=== PATIENT | male | born 1975 | race Hispanic/Latino ===

== ENCOUNTER 2025-03-02 17:40 | Observation (INO) | payer OTHER, SELFPAY ==
[2025-03-02] MEDS ORDERED: MORPHINE 4 MG/ML SYR ONE (18:16)
[2025-03-02] MEDS ORDERED: ONDANSETRON 4 MG/2 ML VIAL ONE (18:16)
[2025-03-02] MEDS ORDERED: ASPIRIN 81 MG CHEWABLE TABLET ONE (18:17)
[2025-03-02 18:33] LABS: Absolute Lymphocytes (CBC) 1.9 K/uL (0.7-4.9); Hematocrit 43.3 % (39.6-49.0); Hemoglobin 14.6 g/dL (13.6-17.9); MCH 26.6 pg (27.0-35.0); MCHC 33.7 g/dL (32.0-36.0); MCV 78.9 fL (80-100); MPV 6.9 fL (7.6-11.3); Nucleated RBC Absolute Count 0.0 (0-0); Nucleated Red Blood Cells % 0.0 % (0-0); RBC Red Blood Cell Count 5.49 M/uL (4.33-5.43); White Blood Count 10.10 thou/uL (4.3-10.9)
[2025-03-02 18:41] LABS: PT Prothrombin Time 11.7 SECONDS (10-13.0); Protime INR 1.04
[2025-03-02 18:58] LABS: ALT/SGPT 38 U/L (16-61); AST/SGOT 18 U/L (15-37); Albumin 4.0 g/dL (3.4-5.0); Albumin/Globulin Ratio 1.1 (1.1-1.8); Alkaline Phosphatase 122 U/L (45-117); Anion Gap 8.5 mEq/L (5.0-15.0); BUN Blood Urea Nitrogen 12 mg/dL (7-18); Globulin 3.7 g/dL (2.3-3.5); Glucose Level 99 mg/dL (74-106); Magnesium 2.2 mg/dL (1.6-2.4); NT PRO-BNP 18 pg/mL (<125); Potassium 3.5 mEq/L (3.5-5.1); Troponin High Sensitivity 5.2 pg/mL (<58.9)
[2025-03-02 18:59] LABS: Bilirubin Indirect, Calculated 0.1 mg/dL (0.2-0.8)
[2025-03-02] MEDS ORDERED: METOPROLOL TAR 25 MG TAB ONE (19:05)
--- NOTE | 2025-03-02 19:36 | RAD REPORT ---
EXAMINATION: ONE VIEW CHEST XR CLINICAL INDICATION: Male, 49 years old.,CHEST PAIN TECHNIQUE: Frontal chest projection is submitted. Examination is limited by patient positioning and t echnique. COMPARISON: No prior exam. FINDINGS: The lungs are well inflated and clear. No pneumothorax or sizable effusion. The heart is normal in s ize. Mediastinal contours are unremarkable. IMPRESSION: No acute intrathoracic abnormalities.
--- NOTE | 2025-03-02 19:41 | EDPHYS ---
Physician Documentation [facility] Name: Jorje Purvis Age: 49 yrs Sex: Male : 1975 Arrival Date: 03/02/2025 Time: 17:40 Bed 18 Private MD: ED Physician Zac Conley HPI: 03/02 18:22 This 49 yrs old Male presents to ER via Ambulatory with complaints of Chest sb4 Pain, Vomiting. 18:22 Patient reports intermittent dizziness for the past few days with exertion and today he sb4 started experiencing chest pain with associated vomiting. Has a history of hypertension high cholesterol, has not been on medications for a few months now due to a recent move. No reported cardiac history. Historical: - Allergies: 18:07 No Known Allergies; iw - Home Meds: 18:07 None [Active]; iw - PMHx: 18:04 Hypertensive disorder; Hypercholesterolemia; iw - PSHx: 18:07 None; iw - Immunization history:: Adult Immunizations. - Infectious Disease History:: Denies. - Social history:: Smoking status: Patient denies any tobacco usage or history of. ROS: 18:22 Constitutional: Negative for fever, chills, and weight loss, sb4 18:22 Cardiovascular: Positive for chest pain, 18:22 Abdomen/GI: Positive for nausea and vomiting, 18:22 Neuro: Positive for dizziness, 18:22 All other systems are negative, Exam: 18:22 Head/Face: Normocephalic, atraumatic. Eyes: Extra-ocular motions intact. Periorbital sb4 areas with no swelling, redness, or edema. ENT: Mucous membranes moist. Cardiovascular: Regular rate and rhythm with a normal S1 and S2. Respiratory: No increased work of breathing, no retractions or nasal flaring. Abdomen/GI: Soft, non-tender, no distension. Skin: Warm, dry with normal turgor. Normal color with no rashes, no lesions, and no evidence of cellulitis. 18:22 Constitutional: The patient appears in no acute distress, alert, awake, Vital Signs: 18:03 BP 160 / 110; Pulse 83; Resp 18; Temp 97.9; Pulse Ox 97% on R/A; Weight 80.74 kg; iw Height 5 ft. 5 in. ; Pain 7/10; 19:00 BP 165 / 106; Pulse 80; Resp 20; Pulse Ox 97% ; me1 20:23 BP 161 / 108; Pulse 74; Resp 17; Pulse Ox 97% on R/A; jb4 21:30 BP 153 / 111; Pulse 73; Resp 13; Pulse Ox 97% ; jb4 22:30 BP 161 / 112; Pulse 68; Resp 15; Pulse Ox 98% on R/A; jb4 18:03 Body Mass Index 29.62 (80.74 kg, 165.1 cm) iw 18:03 Pain Scale: Adult iw MDM: 17:45 Medical Screening Exam initiated sb4 18:23 Differential diagnosis: ACS, electrolyte abnormality, abnormal EKG, acute OK, unstable sb4 angina, hypertension. 19:04 Independent interpretation of the following test(s) in the Emergency Department CT sb4 Scan: My interpretation is Chest x-ray image -no cardiomegaly, pleural effusions, or pneumothorax. 19:48 Data reviewed: vital signs, nurses notes, lab test result(s), radiologic studies, and sb4 as a result, I will admit patient. Consideration of Admission/Observation Patient was admitted/placed on observation. Scoring Tools HEART Score: History: ECG: Age: Risk Factors: 1 or 2 risk factors (1), Troponin: Total Score = 5. Counseling: I had a detailed discussion with the patient and/or guardian regarding the historical points, exam findings, and any diagnostic results supporting the discharge/admit diagnosis, the presence of at least one elevated blood pressure reading (>120/80) during this emergency department visit, lab results, radiology results, the need for further work-up and treatment in the hospital. 03/02 18:07 Order name: Basic Metabolic Panel; Complete Time: 19:00 sb4 03/02 18:07 Order name: CBC with Diff; Complete Time: 18:35 sb4 03/02 18:07 Order name: LFT's; Complete Time: 19:00 sb4 03/02 18:07 Order name: Magnesium; Complete Time: 19:00 sb4 03/02 18:07 Order name: NT PRO-BNP; Complete Time: 19:00 sb4 03/02 18:07 Order name: PT-INR; Complete Time: 18:42 sb4 03/02 18:07 Order name: Troponin HS; Complete Time: 19:00 sb4 03/02 22:37 Order name: CBC with Automated Diff EDMS 03/02 22:37 Order name: CBC with Automated Diff EDMS 03/02 22:37 Order name: CBC with Automated Diff EDMS 03/02 22:37 Order name: Comprehensive Metabolic Panel EDMS 03/02 22:37 Order name: Comprehensive Metabolic Panel EDMS 03/02 22:37 Order name: Comprehensive Metabolic Panel EDMS 03/02 22:37 Order name: Magnesium EDMS 03/02 22:37 Order name: Magnesium EDMS 03/02 22:37 Order name: Magnesium EDMS 03/02 18:07 Order name: XRAY Chest (1 view); Complete Time: 19:37 sb4 03/02 22:26 Order name: CT HEAD,C-SPINT W/O EDMS 03/02 22:30 Order name: Head C Spine Mpr Wo Con EDMS 03/02 18:07 Order name: Cardiac monitoring; Complete Time: 18:43 sb4 03/02 18:07 Order name: EKG - Nurse/Tech; Complete Time: 18:13 sb4 03/02 18:07 Order name: IV Saline Lock; Complete Time: 18:22 sb4 03/02 18:07 Order name: Labs collected and sent; Complete Time: 18:22 sb4 03/02 18:07 Order name: O2 Per Protocol; Complete Time: 18:22 sb4 03/02 18:07 Order name: O2 Sat Monitoring; Complete Time: 18:22 sb4 EC:24 Rate is 81 beats/min. Rhythm is regular, Normal Sinus Rhythm. MS interval is normal at sb4 148 msec. QRS interval is normal at 84 msec. QT interval is normal at 370 msec. No Q waves. T waves are Normal. No ST changes noted. Clinical impression: Normal ECG. Interpreted by me. Reviewed by me. Administered Medications: 18:32 Drug: Aspirin PO Chewable Tablet 324 mg PO once; 81 mg tablets x 4 Route: PO; iw 18:49 Follow up: Response: No adverse reaction me1 18:32 Drug: morphine IVP or IV 4 mg IVP once over 4 mins Route: IVP; Infused Over: 4 mins; iw Site: right antecubital; 18:50 Follow up: Response: No adverse reaction; Pain is decreased me1 18:32 Drug: Ondansetron IVP 4 mg IVP once; over 2 minutes Route: IVP; Site: right antecubital;iw 18:49 Follow up: Response: No adverse reaction; Nausea is decreased me1 19:07 Drug: Metoprolol PO 25 mg PO once Route: PO; me1 20:22 Drug: Meclizine PO 50 mg PO once Route: PO; jb4 Disposition: 18:25 I was immediately available on-site in the Emergency Department for consultation in the ms3 care of the patient. Disposition Summary: 03/02/25 19:40 Hospitalization Ordered Notes: Hospitalization Status: Observation sb4 Provider: Adeel Matson sbEloina Location: Telemetry/MedSurg (observation) sb4 Condition: Fair sb4 Problem: new sb4 Symptoms: are unchanged sb4 Bed/Room Type: Standard sb4 Room Assignment: 421(03/02/25 22:39) km Diagnosis - Chest pain, unspecified sb4 - Dizziness and giddiness sb4 - Patient's noncompliance with medical treatment and regimen sb4 Forms: - Medication Reconciliation Form sb4 - SBAR form sb4 - Leadership Thank You Letter sb4 Signatures: Dispatcher [employer] Mckenzie Mitchell, AMARILIS OLMOS iw Jeremy Thompson RN RN jb4 Zac Conley DO DO ms3 Meagan Angel PA-C PAVern sb4 Tricia Flores RN RN me1 Telma Hart [facility] Corrections: (The following items were deleted from the chart) 18:07 18:07 BASIC METABOLIC PANEL+C.LAB.BRZ ordered. EDMS EDMS 18:07 18:07 CBC+H.LAB.BRZ ordered. EDMS EDMS 18:07 18:07 HEPATIC FUNCTION+C.LAB.BRZ ordered. EDMS EDMS 18:07 18:07 MAGNESIUM+C.LAB.BRZ ordered. EDMS EDMS 18:07 18:07 PROBNP+C.LAB.BRZ ordered. EDMS EDMS 18:07 18:07 PROTIME (+INR)+COAG.LAB.BRZ ordered. EDMS EDMS 18:07 18:07 Troponin High Sensitivity+C.LAB.BRZ ordered. EDMS EDMS 18:07 18:07 Chest Single View+RAD.RAD.BRZ ordered. EDMS EDMS 22:30 22:26 CT HEAD,C-SPINT W/O ordered. EDMS EDMS 22:39 19:40 sb4 kmf
--- NOTE | 2025-03-02 19:41 | ER ---
Nurse's Notes [facility] Name: Jorje Purvis Age: 49 yrs Sex: Male : 1975 Arrival Date: 03/02/2025 Time: 17:40 Bed 18 Private MD: Diagnosis: Chest pain, unspecified;Dizziness and giddiness;Patient's noncompliance with medical treatment and regimen Presentation: 03/02 18:03 Chief complaint: Patient states: dizzy X 1 week , he gets chest pains and then vomits, iw feels like he is going to pass out, happened again 4 hours ago. Coronavirus screen: At this time, the client does not indicate any symptoms associated with coronavirus-19. Ebola Screen: No symptoms or risks identified at this time. Initial Sepsis Screen: Does the patient meet any 2 criteria? No. Patient's initial sepsis screen is negative. Does the patient have a suspected source of infection? No. Patient's initial sepsis screen is negative. Risk Assessment: Do you want to hurt yourself or someone else? Patient reports no desire to harm self or others. Onset of symptoms was February 23, 2025. 18:03 Method Of Arrival: Ambulatory iw 18:03 Acuity: LESLI 3 iw Historical: - Allergies: 18:07 No Known Allergies; iw - Home Meds: 18:07 None [Active]; iw - PMHx: 18:04 Hypertensive disorder; Hypercholesterolemia; iw - PSHx: 18:07 None; iw - Immunization history:: Adult Immunizations. - Infectious Disease History:: Denies. - Social history:: Smoking status: Patient denies any tobacco usage or history of. Screenin:45 [facility] ED Fall Risk Assessment (Adult) History of falling in the last 3 months, me1 including since admission No falls in past 3 months (0 pts) Confusion or Disorientation No (0 pts) Intoxicated or Sedated No (0 pts) Impaired Gait No (0 pts) Mobility Assist Device Used No (0 pt) Altered Elimination No (0 pt) Score/Fall Risk Level 0 - 2 = Low Risk Maintained a safe environment, Provided non-skid footwear, Hourly rounding (assess needs \T\ fall precautionary measures) done. Abuse screen: Denies threats or abuse. Nutritional screening: No deficits noted. Tuberculosis screening: No symptoms or risk factors identified. Assessment: 18:45 General: Appears in no apparent distress. well groomed, well developed, well nourished, me1 Behavior is calm, cooperative, appropriate for age, Reports dizzy X 1 week , he gets chest pains and then vomits, feels like he is going to pass out, happened again 4 hours ago. Pain: Complains of pain in chest Pain does not radiate. Pain currently is 7 out of 10 on a pain scale. Quality of pain is described as pressure, Pain began suddenly, Is intermittent, episodic. Neuro: Level of Consciousness is awake, alert, obeys commands, Oriented to person, place, time, situation, Appropriate for age. Neuro: Reports dizziness, for a week. Cardiovascular: Reports chest pain, nausea, Patient's skin is warm and dry. Respiratory: Airway is patent Respiratory effort is even, unlabored, Respiratory pattern is regular, symmetrical. GI: Reports nausea, vomiting, that he gets chest pain and then vomits. : No signs and/or symptoms were reported regarding the genitourinary system. EENT: No signs and/or symptoms were reported regarding the EENT system. Derm: Skin is intact, is healthy with good turgor, Skin is normal. Musculoskeletal: Circulation, motion, and sensation intact. Range of motion: intact in all extremities. 20:22 Reassessment: Patient appears in no apparent distress at this time. Patient and/or jb4 family updated on plan of care and expected duration. Pain level reassessed. Patient is alert, oriented x 3, equal unlabored respirations, skin warm/dry/pink. report received from AMARILIS Clarke. 21:30 Reassessment: Patient appears in no apparent distress at this time. Patient and/or jb4 family updated on plan of care and expected duration. Pain level reassessed. Patient is alert, oriented x 3, equal unlabored respirations, skin warm/dry/pink. 22:38 Reassessment: Patient appears in no apparent distress at this time. Patient and/or jb4 family updated on plan of care and expected duration. Pain level reassessed. Patient is alert, oriented x 3, equal unlabored respirations, skin warm/dry/pink. Vital Signs: 18:03 BP 160 / 110; Pulse 83; Resp 18; Temp 97.9; Pulse Ox 97% on R/A; Weight 80.74 kg; iw Height 5 ft. 5 in. ; Pain 7/10; 19:00 BP 165 / 106; Pulse 80; Resp 20; Pulse Ox 97% ; me1 20:23 BP 161 / 108; Pulse 74; Resp 17; Pulse Ox 97% on R/A; jb4 21:30 BP 153 / 111; Pulse 73; Resp 13; Pulse Ox 97% ; jb4 22:30 BP 161 / 112; Pulse 68; Resp 15; Pulse Ox 98% on R/A; jb4 18:03 Body Mass Index 29.62 (80.74 kg, 165.1 cm) iw 18:03 Pain Scale: Adult iw ED Course: 17:43 Patient arrived in ED. mr 17:45 Meagan Angel PA-C is PHCP. sb4 17:45 Zac Conley DO is Attending Physician. sb4 18:04 Triage completed. iw 18:05 Arm band placed on. iw 18:22 Initial lab(s) drawn, by me, sent to lab. Inserted saline lock: 20 gauge in right iw antecubital area, using aseptic technique. Blood collected. Flushed with 10 mL NS. 18:44 XRAY Chest (1 view) In Process Unspecified. EDMS 18:45 Patient has correct armband on for positive identification. Bed in low position. Call me1 light in reach. Side rails up X2. Provided Education on: POC. Verbalized understanding.. Client placed on continuous cardiac and pulse oximetry monitoring. NIBP monitoring applied. laboratory monitor on. Pulse ox on. NIBP on. 18:45 No provider procedures requiring assistance completed. Patient maintains SpO2 me1 saturation greater than 95% on room air. 18:49 Tricia Flores, RN is Primary Nurse. me1 19:40 Adeel Matson, AMARILIS is Hospitalizing Provider. sb4 23:32 Patient admitted, IV remains in place. jb4 Administered Medications: 18:32 Drug: Aspirin PO Chewable Tablet 324 mg PO once; 81 mg tablets x 4 Route: PO; iw 18:49 Follow up: Response: No adverse reaction me1 18:32 Drug: morphine IVP or IV 4 mg IVP once over 4 mins Route: IVP; Infused Over: 4 mins; iw Site: right antecubital; 18:50 Follow up: Response: No adverse reaction; Pain is decreased me1 18:32 Drug: Ondansetron IVP 4 mg IVP once; over 2 minutes Route: IVP; Site: right antecubital;iw 18:49 Follow up: Response: No adverse reaction; Nausea is decreased me1 19:07 Drug: Metoprolol PO 25 mg PO once Route: PO; me1 20:22 Drug: Meclizine PO 50 mg PO once Route: PO; jb4 Medication: 18:45 VIS not applicable for this client. me1 Outcome: 19:40 Decision to Hospitalize by Provider. sb4 23:32 Admitted to Tele accompanied by nurse, via wheelchair, room 421, jb4 23:32 Condition: stable 23:32 Instructed on follow up and referral plans. the need for admit, Demonstrated understanding of instructions, follow-up care, medications, 23:33 Patient left the ED. jb4 Signatures: Dispatcher [employer] EDMS Sofia Anglin, Reg Reg mr Mckenzie Culver RN RN Jeremy Thompson RN RN jb4 Meagan Angel, PA-C PA-C [facility] Tricia Flores RN RN me1 Corrections: (The following items were deleted from the chart) 18:07 18:03 BP 160 / 110; Pulse 83bpm; Resp 18bpm; Pulse Ox 97% RA; Temp 97.9F; iw iw 18:51 18:03 Chief complaint: Patient states: dizzy X 1 week , he gets chest pains and then me1 vomits, feels like he is going to pass out, happened again 4 hours ago iw
[2025-03-02] MEDS ORDERED: MECLIZINE HCL 12.5 MG TAB ONE (20:19)
[2025-03-02] MEDS ORDERED: PANTOPRAZOLE 40 MG INJ IVP ONE (22:24)
[2025-03-02] MEDS ORDERED: SODIUM CHLORIDE 0.9% 10ML INJ IV PRN (22:24)
[2025-03-02] MEDS ORDERED: ONDANSETRON 4 MG/2 ML VIAL IV PRN (22:32)
[2025-03-02] MEDS ORDERED: ACETAMINOPHEN 325 MG TABLET PO PRN (22:32)
[2025-03-03 00:15] VITALS: BMI 29.6
[2025-03-03] MEDS: NA CHLORIDE 0.9% 1,000 ML IV SCH (00:40)
[2025-03-03] MEDS: PANTOPRAZOLE 40 MG INJ IVP ONE (00:41)
[2025-03-03 00:50] VITALS: O2SAT 98
--- NOTE | 2025-03-03 05:59 | P.HP ---
Certification for Inpatient Patient admitted to: Observation With expected LOS: <2 Midnights Patient will require the following post-hospital care: None Practitioner: I am a practitioner with admitting privileges, knowledge of patient current condition, hospital course, and medical plan of care. Services: Services provided to patient in accordance with Admission requirements found in Title 42 Section 412.3 of the Code of Federal Regulations <Adeel Matson - Last Filed: 03/03/25 06:08> Patient History Date of Service: 03/02/25 Reason for admission: Dizziness, nausea and vomiting, headache. History of Present Illness: Patient is a 49-year-old male with past medical history of prediabetic, essential hypertension, GERD, hypercholesteremia, brought to the ER today complaining of dizziness x 4 days, headache, nausea and vomiting. Apparently patient is supposed to be taking medications but he ran out of his medications currently is not taking any medication for his high blood pressure, cholesterol, or GERD. Patient significant other could not explain exactly what happened with his medications, states [place] recently moved [place] the [place] to [place]. Since patient is a predominantly Tajik-speaking only, most of his information was provided by the significant other female who was at bedside. She states patient has been having dizziness for the past 4 days, states they had gone to the [place], and states while driving back to [place], patient started vomiting nonbilious and nonbloody content, and also complained of headache. She states patient had multiple episode of vomiting, and complaint of epigastric pain, which appeared to be more flareup of GERD. She states she decided to bring the patient to ER for him to be checked out. During admission assessment, patient endorses headache, but denies of any nausea or vomiting at this time. Patient endorses upper epigastric pain, and appears to be more of patient GERD, patient has gone for a while without taking any of his medications. Patient blood pressure was also elevated in the ER. Patient denies of any chest pain or shortness of breath at this time. Course in ER. (1) chest x-ray. Impression: No acute intrathoracic abnormalities. (2) CT of the head without contrast. Impression still pending at this time. - Past Medical/Surgical History Has patient received pneumonia vaccine in the past: No -: HTN -: Hypercholesterolemia -: GERD Past Surgical History: Reviewed- Non-Contributory -: Patient states he does not with a past surgical history. - Family History Mother -: Cancer (Liver cancer.) - Social History Smoking Status: Former smoker Alcohol use: Yes CD- Drugs: No Caffeine use: No Place of Residence: Home <Adeel Matson - Last Filed: 03/03/25 06:08> Date of Service: 03/02/25 <Yuniel Mahmood - Last Filed: 03/08/25 12:39> Allergies No Known Allergies Allergy (Unverified 03/03/25 00:10) Home Medications: Aspirin [Aspirin EC 81 MG] 81 mg PO DAILY #30 tab 03/03/25 Atorvastatin Calcium [Lipitor] 20 mg PO BEDTIME #30 tab 03/03/25 Review of Systems 10-point ROS is otherwise unremarkable General: Other (Dizziness.) Gastrointestinal: Nausea, Vomiting <Adeel Matson - Last Filed: 03/03/25 06:08> Physical Examination - Vital Signs Temperature: 98.1 F Blood Pressure: 146/86 Pulse: 65 Respirations: 18 Pulse Ox (%): 99 - Physical Exam General: Alert, In no apparent distress, Oriented x3 HEENT: Atraumatic, Normocephalic, PERRLA, Mucous membr. moist/pink, Sclerae nonicteric Neck: Supple, 2+ carotid pulse no bruit, No LAD, Without JVD or thyroid abnormality Respiratory: Clear to auscultation bilaterally, Normal air movement Cardiovascular: No edema, Normal pulses, Regular rate/rhythm, Normal S1 S2, Abnormal S3, No gallops, No rubs, No murmurs Capillary refill: <2 Seconds Gastrointestinal: Normal bowel sounds, Hypoactive, Soft and benign, Non- distended, W/out hepatomegaly, No ascites, No tenderness, No masses, No rebound, No guarding Musculoskeletal: No clubbing, No swelling, No contractures, No erythema, No tenderness, No warmth Integumentary: No rashes, No breakdown, No significant lesion, No tenderness/swelling, No erythema, No warmth, No cyanosis Neurological: Normal gait, Normal speech, Normal strength at 5/5 x4 extr, Normal tone, Sensation intact, Cranial nerves 3-12 intact, Normal reflexes 2+, Normal affect Lymphatics: No axilla or inguinal lymphadenopathy - Studies Laboratory Data (last 24 hrs) 03/02/25 03/02/25 03/02/25 18:19 18:19 18:19 WBC 10.10 Hgb 14.6 Hct 43.3 Plt Count 425 H PT 11.7 INR 1.04 Sodium 140 Potassium 3.5 BUN 12 Creatinine 1.01 Glucose 99 Magnesium 2.2 Total Bilirubin 0.3 AST 18 ALT 38 Alkaline Phosphatase 122 H <DanoAdeel - Last Filed: 03/03/25 06:08> Male Exam - Male Exam Inguinal exam: No hernias, Inguinal lymph node <Adeel Matson - Last Filed: 03/03/25 06:08> Assessment and Plan - Plan Patient presents to the ER complaining of dizziness, nausea and vomiting, with associated headache. (1)Dizziness, headache, volume depleted due to nausea and vomiting. - Order CT of the head without contrast. Patient impression still pending at this time. -IV NS at 100 mL/hr. -Order echocardiogram. -Consult neurologist Dr. Dukes. -Order start Protonix 40 mg IV. Patient complained of epigastric pain which appears to be more related to his GERD. -Zofran 40 mg IV as needed every 6 hours. (2)Chronic GERD. -Started on Protonix 40 mg p.o. daily. (3)Chronic hypercholesteremia. -Ordered atorvastatin 80 mg p.o. daily. (4)Essential hypertension. -Resume patient losartan 50 mg p.o. twice daily. Patient blood pressure was elevated while in ER. (5)DVT prophylaxis. -Lovenox 40 mg subcu daily. (6)Explained the entire treatment plan to the patient and significant other present in the bedside, solicited questions answered and voiced understanding. Discharge Plan: Home Plan to discharge in: 48 Hours - Advance Directives Does patient have a Living Will: No Does patient have a Durable POA for Healthcare: No - Code Status/Comfort Care Code Status Assessed: No Code Status: Full Code Critical Care: No Time Spent Managing Pts Care (In Minutes): 55 <DanoAdeel - Last Filed: 03/03/25 06:08> Date of Service: 03/02/25 Patient was seen and examined. Events of the last 24 hours have been noted. Spoke with with FELICE regarding patient's clinical picture after evaluating and examining the patient independently. I performed a substantial part of the MDM during this patient's care today. I personally made or approved the documented management plan and acknowledge its risk of complications. I agree with the findings and documentation provided in the FELICE's notes. <Yuniel Mahmood - Last Filed: 03/08/25 12:39>
[2025-03-03 06:50] LABS: Absolute Lymphocytes (CBC) 2.1 K/uL (0.7-4.9); Hematocrit 40.9 % (39.6-49.0); Hemoglobin 13.6 g/dL (13.6-17.9); MCH 26.5 pg (27.0-35.0); MCHC 33.4 g/dL (32.0-36.0); MCV 79.4 fL (80-100); MPV 7.4 fL (7.6-11.3); Nucleated RBC Absolute Count 0.0 (0-0); Nucleated Red Blood Cells % 0.1 % (0-0); RBC Red Blood Cell Count 5.15 M/uL (4.33-5.43); White Blood Count 11.20 thou/uL (4.3-10.9)
[2025-03-03 06:55] LABS: ALT/SGPT 30.0 U/L (16-61); AST/SGOT 16.0 U/L (15-37); Albumin 3.3 g/dL (3.4-5.0); Albumin/Globulin Ratio 1.1 (1.1-1.8); Alkaline Phosphatase 104.0 U/L (45-117); Anion Gap 8.6 mEq/L (5.0-15.0); BUN Blood Urea Nitrogen 13.0 mg/dL (7-18); Globulin 3.0 g/dL (2.3-3.5); Glucose Level 97.0 mg/dL (74-106); Magnesium 2.2 mg/dL (1.6-2.4); Potassium 3.6 mEq/L (3.5-5.1)
[2025-03-03] MEDS: INSULIN REGULAR (HUMAN) 100 UNIT/ML SQ SCH (07:30)
--- NOTE | 2025-03-03 07:45 | RAD REPORT ---
EXAMINATION: Head C Spine Mpr Wo Con CLINICAL INDICATION: Male, 49 years old. Head Ache, Dizziness, N/V TECHNIQUE: Axial CT images from the skull base to the vertex without intravenous contrast. Axial CT i mages through the cervical spine were obtained without intravenous contrast. Sagittal and coronal reformatted images were created from the data set. Coronal and sagittal reformatted images were creat ed from the data set. One or more of the following dose reduction techniques were used: Automated exposure control, adjustment of the mA and/or kV according to patient size, and/or iterative reconstr uction. Unless otherwise specified, incidental findings do not require dedicated imaging follow-up. [id number]. COMPARISON: No prior exams FINDINGS: Head: INTRACRANIAL: No acute intracranial hemorrhage. No acute large vascular territory infarct. No hydroce phalus. No mass effect or midline shift. No significant white matter disease.Mild cerebral atrophy. VASCULATURE: No visualized abnormalities in the arteries or dural venous sinuses. SCALP/SKULL: No calvarial fracture identified. No acute soft tissue abnormality. Inward bowing of th e right parietal calvarium possibly sequela of remote trauma. SINUSES: The visualized paranasal sinuses are mostly clear. No significant mastoid fluid. Cervical spine: ALIGNMENT: Reversal the normal cervical lordosis. BONE: Vertebral body heights are maintained. No aggressive osseous lesions. DEGENERATIVE: No significant focal degenerative changes. SOFT TISSUE: No significant abnormalities in the soft tissue of the neck. The visualized lung apices are clear. IMPRESSION: No acute intracranial abnormality. No acute fracture or traumatic malalignment of the cervical spine.
[2025-03-03] MEDS: ENOXAPARIN 40 MG/0.4 ML SQ SCH (09:08)
[2025-03-03] MEDS: LOSARTAN POTASSIUM 50 MG TABLET PO SCH (09:08)
[2025-03-03 12:27] VITALS: BP 135/85; TEMP 97.5
[2025-03-03] MEDS ORDERED: ATORVASTATIN 80 MG TAB PO SCH (21:00)
== END 2025-03-03 16:13 | disposition home or self-care (01) ==
LOC: ER 17:40 → 4TH 22:21
PROVIDERS: ADMIT Hospitalist; ATTEND Hospitalist
DX: R42 Dizziness and giddiness (principal); E86.9 Volume depletion, unspecified; R51.9 Headache, unspecified; R11.2 Nausea with vomiting, unspecified; I10 Essential (primary) hypertension; E78.00 Pure hypercholesterolemia, unspecified
CPT/HCPCS: 93005; 85025 ×2; 80048; 36415; 83735 ×2; 85610; 82947 ×3; 80076; 84484; 80053; 83880; 70450; 72125; 71045; 96375; 96374; 99285; J8597; J2470; J1650; J2405; J7030 ×2; G0378 ×3

== ENCOUNTER 2025-03-11 19:28 | Observation (INO) | payer OTHER ==
[2025-03-11 20:34] LABS: Urine Microscopic Reflex YN NO UMIC
--- NOTE | 2025-03-11 20:42 | RAD REPORT ---
EXAMINATION: ONE VIEW CHEST XR CLINICAL INDICATION: Male, 49 years old.,CHEST PAIN TECHNIQUE: Frontal chest projection is submitted. Examination is limited by patient positioning and t echnique. COMPARISON: 03/02/2025 FINDINGS: The lungs are well inflated and clear. No pneumothorax or sizable effusion. The heart is normal in s ize. Mediastinal contours are unremarkable. IMPRESSION: No acute intrathoracic abnormalities.
[2025-03-11 20:46] LABS: Absolute Lymphocytes (CBC) 2.5 K/uL (0.7-4.9); Hematocrit 42.6 % (39.6-49.0); Hemoglobin 14.0 g/dL (13.6-17.9); MCH 26.3 pg (27.0-35.0); MCHC 32.8 g/dL (32.0-36.0); MCV 80.2 fL (80-100); MPV 7.7 fL (7.6-11.3); Nucleated RBC Absolute Count 0.0 (0-0); Nucleated Red Blood Cells % 0.1 % (0-0); RBC Red Blood Cell Count 5.32 M/uL (4.33-5.43); White Blood Count 11.40 thou/uL (4.3-10.9)
[2025-03-11 20:47] LABS: PT Prothrombin Time 12.6 SECONDS (10-13.0); Protime INR 1.12
[2025-03-11 20:52] LABS: ALT/SGPT 38 U/L (16-61); AST/SGOT 31 U/L (15-37); Albumin 4.3 g/dL (3.4-5.0); Albumin/Globulin Ratio 1.1 (1.1-1.8); Alkaline Phosphatase 134 U/L (45-117); Anion Gap 13.4 mEq/L (5.0-15.0); BUN Blood Urea Nitrogen 41 mg/dL (7-18); Globulin 3.8 g/dL (2.3-3.5); Glucose Level 97 mg/dL (74-106); Magnesium 2.7 mg/dL (1.6-2.4); NT PRO-BNP 8 pg/mL (<125); Potassium 3.4 mEq/L (3.5-5.1); Troponin High Sensitivity 3.8 pg/mL (<58.9)
[2025-03-11 20:53] LABS: Bilirubin Indirect, Calculated 0.2 mg/dL (0.2-0.8)
--- NOTE | 2025-03-11 22:21 | RAD REPORT ---
EXAMINATION: CT Stone Protocol CLINICAL INDICATION: Male, 49 years old. elevated creatinine TECHNIQUE: CT abdomen and pelvis was performed, without IV contrast, as per department protocol. Axia l, sagittal and coronal reconstructions were obtained. One or more of the following dose reduction techniques were used: Automated exposure control, adjustment of the mA and kV according to the patien t size, and iterative reconstruction. Unless otherwise specified, incidental findings do not require dedicated imaging follow-up. COMPARISON: No prior exam. FINDINGS: The lack of intravenous contrast limits the sensitivity of this exam for evaluation of solid visceral organs, vascular structures, and retroperitoneum. LOWER CHEST: The visualized lung bases are clear. LIVER: Normal in size and contour. No focal lesion. BILIARY SYSTEM: No suspicious abnormalities. SPLEEN: Normal size. No focal lesion. PANCREAS: No mass, ductal dilation, or pauly-pancreatic fluid. ADRENALS: Normal; no mass. KIDNEYS AND URETERS: Normal size and contour. No hydronephrosis. URINARY BLADDER: Normal contour. GASTROINTESTINAL TRACT: No evidence of bowel obstruction, significant free fluid, free air or abscess . APPENDIX: Normal appendix. LYMPH NODES: No lymphadenopathy. MUSCULOSKELETAL: No acute or suspicious osseous abnormality. ADDITIONAL FINDINGS: None. IMPRESSION: No acute or concerning abnormalities in the abdomen or pelvis, with evaluation limited by lack of IV contrast.
--- NOTE | 2025-03-11 22:43 | ER ---
Nurse's Notes [facility] Name: Jorje Purvis Age: 49 yrs Sex: Male : 1975 Arrival Date: 03/11/2025 Time: 19:28 Bed 18 Private MD: Diagnosis: Acute kidney failure, unspecified;Chest pain, unspecified Presentation: 03/11 20:18 Chief complaint:. Coronavirus screen: Client denies travel out of the [place] in the last br2 14 days. Ebola Screen: Patient denies exposure to infectious person. Ebola Screen: Patient denies exposure to infectious person. 20:18 Method Of Arrival: EMS: [facility] br2 20:22 Chief complaint:. br2 20:24 Chief complaint: Patient states: PT SENT TO ER DUE TO ABNORMAL LAB. PT DENES PAIN AT br2 THIS TIME. Initial Sepsis Screen: Does the patient meet any 2 criteria? No. Patient's initial sepsis screen is negative. Does the patient have a suspected source of infection? No. Patient's initial sepsis screen is negative. Risk Assessment: Do you want to hurt yourself or someone else? Patient reports no desire to harm self or others. Onset of symptoms is unknown. 20:24 Acuity: LESLI 3 br2 Triage Assessment: 20:29 General: Appears in no apparent distress. comfortable, Behavior is calm, cooperative. br2 Pain: Denies pain. Neuro: Chaney Agitation-Sedation Scale (RASS): 0 - Alert and Calm Level of Consciousness is awake, alert, obeys commands, Oriented to person, place, time, situation. Cardiovascular: Denies chest pain. Respiratory:. GI: No signs and/or symptoms were reported involving the gastrointestinal system. : No signs and/or symptoms were reported regarding the genitourinary system. Historical: - PMHx: 20:29 Hypercholesterolemia; Hypertensive disorder; br2 - Immunization history:: Adult Immunizations not up to date. - Infectious Disease History:: Denies. - Social history:: Smoking status: Patient denies any tobacco usage or history of. Patient/guardian denies using alcohol, street drugs. Screenin:18 [facility] ED Fall Risk Assessment (Adult) History of falling in the last 3 months, br2 including since admission No falls in past 3 months (0 pts) Confusion or Disorientation No (0 pts) Intoxicated or Sedated No (0 pts) Impaired Gait No (0 pts) Mobility Assist Device Used No (0 pt) Altered Elimination No (0 pt) Score/Fall Risk Level 0 - 2 = Low Risk Oriented to surroundings. Abuse screen: Denies threats or abuse. Denies injuries from another. Nutritional screening: No deficits noted. Tuberculosis screening: No symptoms or risk factors identified. Assessment: 20:18 Reassessment: see triage. br2 23:11 Reassessment: Patient is alert, oriented x 3, equal unlabored respirations, skin br2 warm/dry/pink. Patient states feeling better. Respiratory: Airway is patent Respiratory effort is even, unlabored, Respiratory pattern is regular, symmetrical. Vital Signs: 20:24 BP 117 / 76; Pulse 85; Resp 25; Temp 97.1; Pulse Ox 95% ; Weight 80.74 kg; Height 5 ft. br2 5 in. ; Pain 0/10; 20:30 BP 100 / 50; Pulse 58; Resp 16 S; Pulse Ox 100% on R/A; br2 20:30 BP 133 / 81; Pulse 84; Resp 21 S; Temp 97.1(O); Pulse Ox 98% on R/A; Pain 0/10; br2 23:11 BP 131 / 81; Pulse 75; Resp 18; Pulse Ox 99% ; br2 23:44 BP 125 / 78; Pulse 74; Resp 20; Pulse Ox 99% ; br2 03/12 00:02 BP 125 / 74; Pulse 78; Resp 17; Pulse Ox 98% ; br2 01:09 BP 118 / 72; Pulse 80; Resp 21 S; Pulse Ox 96% on R/A; br2 02:01 BP 108 / 70; Pulse 73; Resp 19; Pulse Ox 92% ; br2 03/11 20:24 Body Mass Index 29.62 (80.74 kg, 165.1 cm) br2 03/11 20:24 Pain Scale: Adult br2 20:30 Pain Scale: Adult br2 ED Course: 03/11 19:31 Patient arrived in ED. cj3 19:35 Eldon Bullard PA-C is PHCP. cp 19:35 Giorgio Baca DO is Attending Physician. cp 20:18 Allergy band placed. Bed in low position. Call light in reach. Side rails up X 1. br2 Provided Education on: PLAN OF CARE. 20:18 Inserted saline lock: 20 gauge in right antecubital area, using aseptic technique. br2 Blood collected. Flushed with 10 mL NS. 20:29 Triage completed. br2 20:29 Arm band placed on right wrist. br2 20:31 XRAY Chest (1 view) In Process Unspecified. EDMS 21:26 CT Stone Protocol In Process Unspecified. EDMS 21:44 Regine Rapp, AMARILIS is Primary Nurse. br2 22:43 Adeel Matson, AMARILIS is Hospitalizing Provider. cp 03/12 02:41 No provider procedures requiring assistance completed. Patient admitted, IV remains in br2 place. Administered Medications: 03/11 22:49 Drug: NS 0.9% IV 1000 ml IV at 1 bolus Per protocol; to be given as a bolus over 60 at6 minutes Route: IV; Rate: 1 bolus; Site: right antecubital; 03/12 01:18 Follow up: Response: No change in condition; IV Status: Completed infusion at6 Output: 03/11 21:30 Urine: 500ml (Voided); Total: 500ml. br2 23:43 Urine: 400ml (Voided); Total: 900ml. br2 Outcome: 22:43 Decision to Hospitalize by Provider. cp 03/12 02:41 Admitted to Med/surg accompanied by nurse, via wheelchair, room 427, br2 Condition: stable Instructed on the need for admit, Demonstrated understanding of instructions, 02:42 Patient left the ED. br2 Signatures: Dispatcher [employer] EDNE Eldon Bullard PA-C PA-C cp Riddle, Belinda, AMARILIS RN br2 Purnima Francisco cj3 Sejal Baca RN RN at6
[2025-03-11] MEDS ORDERED: NA CHLORIDE 0.9% 1,000 ML ONE (22:44)
--- NOTE | 2025-03-11 22:44 | EDPHYS ---
Physician Documentation [facility] Name: Jorje Purvis Age: 49 yrs Sex: Male : 1975 Arrival Date: 03/11/2025 Time: 19:28 Bed 18 Private MD: ED Physician Giorgio Baca HPI: 03/11 21:00 This 49 yrs old Male presents to ER via EMS with complaints of Abnormal Lab cp Results. 21:00 Patient is a 49-year-old male past medical history significant for hypertension and cp hyperlipidemia who presents to the emergency department for abnormal lab results. Patient reportedly had labs drawn at his primary care doctor's office yesterday that showed that his creatinine was elevated over 3. Patient was notified today to go to the emergency department for evaluation. Patient reports over the last several days he has been vomiting and had difficulty holding fluids down. Denies any chest pain and or abdominal pain. Patient denies a history of any kidney failure. Historical: - PMHx: 20:29 Hypercholesterolemia; Hypertensive disorder; br2 - Immunization history:: Adult Immunizations not up to date. - Infectious Disease History:: Denies. - Social history:: Smoking status: Patient denies any tobacco usage or history of. Patient/guardian denies using alcohol, street drugs. ROS: 21:00 Constitutional: Positive for poor PO intake, Negative for body aches, chills, fever, cp 21:00 Eyes: Negative for injury, pain, redness, and discharge, cp 21:00 Cardiovascular: Negative for chest pain, 21:00 Respiratory: Negative for cough, shortness of breath, wheezing, 21:00 Abdomen/GI: Positive for nausea and vomiting, Negative for diarrhea, constipation, hematemesis, black/tarry stool, rectal bleeding, 21:00 Neuro: Negative for altered mental status, dizziness, headache, syncope, 21:00 All other systems are negative, Exam: 21:05 Constitutional: The patient appears in no acute distress, alert, awake, cp non-diaphoretic, non-toxic, well developed, well nourished, overweight 21:05 Head/Face: Normocephalic, atraumatic. cp 21:05 Eyes: Periorbital structures: appear normal, Conjunctiva: normal, no exudate, no injection, Sclera: no appreciated abnormality, Lids and lashes: appear normal, bilaterally, 21:05 ENT: External ear(s): are unremarkable, Nose: is normal, Mouth: Lips: moist, Oral mucosa: moist, Posterior pharynx: Airway: no evidence of obstruction, patent, 21:05 Chest/axilla: Inspection: normal, Palpation: is normal, no crepitus, no tenderness, 21:05 Cardiovascular: Rate: normal, Rhythm: regular, Edema: is not appreciated, JVD: is not appreciated, 21:05 Respiratory: the patient does not display signs of respiratory distress, Respirations: normal, no use of accessory muscles, no retractions, labored breathing, is not present, Breath sounds: are clear throughout, no decreased breath sounds, no stridor, no wheezing, 21:05 Abdomen/GI: Inspection: abdomen appears normal, Palpation: abdomen is soft and non-tender, in all quadrants, 21:05 Back: pain, is absent, ROM is normal, 21:05 Neuro: Orientation: to person, place \T\ time. Mentation: is normal, Cerebellar function: is grossly normal, Motor: moves all fours, strength is normal, Sensation: is normal, Vital Signs: 20:24 BP 117 / 76; Pulse 85; Resp 25; Temp 97.1; Pulse Ox 95% ; Weight 80.74 kg; Height 5 ft. br2 5 in. ; Pain 0/10; 20:30 BP 100 / 50; Pulse 58; Resp 16 S; Pulse Ox 100% on R/A; br2 20:30 BP 133 / 81; Pulse 84; Resp 21 S; Temp 97.1(O); Pulse Ox 98% on R/A; Pain 0/10; br2 23:11 BP 131 / 81; Pulse 75; Resp 18; Pulse Ox 99% ; br2 23:44 BP 125 / 78; Pulse 74; Resp 20; Pulse Ox 99% ; br2 10 00:02 BP 125 / 74; Pulse 78; Resp 17; Pulse Ox 98% ; br2 01:09 BP 118 / 72; Pulse 80; Resp 21 S; Pulse Ox 96% on R/A; br2 02:01 BP 108 / 70; Pulse 73; Resp 19; Pulse Ox 92% ; br2 03/11 20:24 Body Mass Index 29.62 (80.74 kg, 165.1 cm) br2 03/11 20:24 Pain Scale: Adult br2 20:30 Pain Scale: Adult br2 MDM: 03/11 19:35 Medical Screening Exam initiated cp 21:00 Differential diagnosis: kidney failure, kidney obstruction, uti, sepsis, electrolyte cp abnormality. 22:45 Data reviewed: vital signs, nurses notes, lab test result(s), EKG, radiologic studies, cp CT scan, plain films. 22:45 Management of patient was discussed with the following: Hospitalist: MR Matson will cp admit after discussion. I considered the following discharge prescriptions or medication management in the emergency department Medications were administered in the Emergency Department. See MAR. Care significantly affected by the following chronic conditions: Hypertension. Counseling: I had a detailed discussion with the patient and/or guardian regarding the historical points, exam findings, and any diagnostic results supporting the discharge/admit diagnosis, lab results, radiology results, the need for further work-up and treatment in the hospital. Response to treatment: the patient's symptoms have mildly improved after treatment. 03/11 20:08 Order name: Basic Metabolic Panel; Complete Time: 21:00 cp 03/11 21:00 Interpretation: Normal except: NA 133; K 3.4; BUN 41; CRE 2.24; GFR 35. cp 03/11 20:08 Order name: CBC with Diff; Complete Time: 21:00 cp 03/12 02:37 Interpretation: Normal except: WBC 11.40; MCH 26.3; PLT 460; RDW 15.4. cp 03/11 20:08 Order name: LFT's; Complete Time: 21:00 cp 03/12 02:38 Interpretation: Normal except: ALK 134; GLOB 3.8. cp 03/11 20:08 Order name: Magnesium; Complete Time: 21:00 cp 03/12 02:38 Interpretation: Abnormal: MG 2.7. cp 03/11 20:08 Order name: NT PRO-BNP; Complete Time: 21:00 cp 03/11 20:08 Order name: PT-INR; Complete Time: 21:00 cp 03/11 20:08 Order name: Troponin HS; Complete Time: 21:00 cp 03/11 20:08 Order name: UA Rfx Melvin Cult if indicated; Complete Time: 21:00 cp 03/12 01:40 Order name: CBC with Automated Diff EDMS 03/12 01:40 Order name: CBC with Automated Diff EDMS 03/12 01:40 Order name: Comprehensive Metabolic Panel EDMS 03/12 01:40 Order name: Comprehensive Metabolic Panel EDMS 03/12 01:40 Order name: Magnesium EDMS 03/12 01:40 Order name: Magnesium EDMS 03/12 01:40 Order name: Magnesium EDMS 03/11 20:08 Order name: XRAY Chest (1 view); Complete Time: 21:00 cp 03/11 21:01 Order name: CT Stone Protocol; Complete Time: 22:30 cp 03/11 20:08 Order name: Cardiac monitoring; Complete Time: 21:59 cp 03/11 20:08 Order name: EKG - Nurse/Tech; Complete Time: 21:59 cp 03/11 20:08 Order name: IV Saline Lock; Complete Time: 21:59 cp 03/11 20:08 Order name: Labs collected and sent; Complete Time: 21:59 cp 03/11 20:08 Order name: O2 Per Protocol; Complete Time: 22:43 cp 03/11 20:08 Order name: O2 Sat Monitoring; Complete Time: 22:43 cp Administered Medications: 22:49 Drug: NS 0.9% IV 1000 ml IV at 1 bolus Per protocol; to be given as a bolus over 60 at6 minutes Route: IV; Rate: 1 bolus; Site: right antecubital; 03/12 01:18 Follow up: Response: No change in condition; IV Status: Completed infusion at6 Disposition Summary: 03/11/25 22:43 Hospitalization Ordered Notes: Hospitalization Status: Inpatient Admission cp Provider: Adeel Matson cp Location: Telemetry/[facility] (Inpatient) cp Condition: Stable cp Problem: new cp Symptoms: have improved cp Bed/Room Type: Standard cp Room Assignment: 427(03/12/25 01:19) kl Diagnosis - Acute kidney failure, unspecified cp - Chest pain, unspecified cp Forms: - Medication Reconciliation Form cp - SBAR form cp - Leadership Thank You Letter cp Addendum: 03/15/2025 17:54 Co-signature as Attending Physician, Giorgio Baca DO I agree with the assessment and t t7 plan of care. Signatures: Dispatcher [facility] Alessia Schuster RN RN Eldon Alexander PA-C PAEuniceC Regine Redmond RN RN br2 Giorgio Baca, DO DO tt7 Sejal Baca, RN RN at6 Corrections: (The following items were deleted from the chart) 03/11 20: 20:08 BASIC METABOLIC PANEL+C.LAB.BRZ ordered. EDMS EDMS : 20:08 CBC+H.LAB.BRZ ordered. EDMS EDMS : 20:08 HEPATIC FUNCTION+C.LAB.BRZ ordered. EDMS EDMS : 20:08 MAGNESIUM+C.LAB.BRZ ordered. EDMS EDMS : 20:08 PROBNP+C.LAB.BRZ ordered. EDMS EDMS : 20:08 PROTIME (+INR)+COAG.LAB.BRZ ordered. EDMS EDMS : 20:08 Troponin High Sensitivity+C.LAB.BRZ ordered. EDMS EDMS : 20:08 UA Rfx Melvin Cult if indicated+U.LAB.BRZ ordered. EDMS EDMS : 20:09 Chest Single View+RAD.RAD.BRZ ordered. EDMS EDMS 22:44 20:27 Bladder Scanner ordered. cp br2 03/12 01:19 03/11 22:43 cp kl
[2025-03-12] MEDS ORDERED: ONDANSETRON 4 MG/2 ML VIAL IV PRN (01:35)
--- NOTE | 2025-03-12 01:40 | P.HP ---
Certification for Inpatient Patient admitted to: Observation With expected LOS: <2 Midnights Patient will require the following post-hospital care: None Practitioner: I am a practitioner with admitting privileges, knowledge of patient current condition, hospital course, and medical plan of care. Services: Services provided to patient in accordance with Admission requirements found in Title 42 Section 412.3 of the Code of Federal Regulations Patient History Date of Service: 03/12/25 Reason for admission: Acute LA NENA. History of Present Illness: Patient is a 46-khdoh-cws male who is a predominantly Macedonian-speaking only, who reports to ER after he was sent by his PCP for further workup and treatment due to acute renal failure. Patient was recently admitted here at the hospital on 03/02/25, and discharged on 03/03/25. On prior admission, patient BUN was 12/13, creatinine 1.01/0.93, GFR 91/101. When patient went to see his PCP this week, blood work was done, and patient was sent to ER due to abnormal renal panel. Patient BUN is 41, creatinine 2.24, GFR 35, which is a big difference from patient previous values. Patient currently denies of any chest pain, shortness of breath, nausea or vomiting, abdominal pain, urinary symptoms, or any discomfort at this time. Patient states patient A1c done recently by his PCP was normal. 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 Allergies No Known Allergies Allergy (Unverified 03/03/25 00:10) Home Medications: Aspirin [Aspirin EC 81 MG] 81 mg PO DAILY #30 tab 03/03/25 Amlodipine [Norvasc] 10 mg PO DAILY 03/12/25 Atorvastatin Calcium [Lipitor] 40 mg PO BEDTIME 03/12/25 Gabapentin [Neurontin] 100 mg PO BID 03/12/25 Metformin HCl [Glucophage] 500 mg PO DAILY WITH BREAKFAST 03/12/25 - Past Medical/Surgical History -: HTN -: Hypercholesterolemia -: GERD -: Type 2 diabetes mellitus. Past Surgical History: Reviewed- Non-Contributory - Family History Mother -: Cancer (Liver cancer.) - Social History Smoking Status: Former smoker Alcohol use: Yes CD- Drugs: No Caffeine use: No Place of Residence: Home Review of Systems 10-point ROS is otherwise unremarkable Physical Examination - Physical Exam General: Alert, In no apparent distress, Oriented x3 (Predominantly Macedonian- speaking.), Cooperative HEENT: Atraumatic, Normocephalic, PERRLA, Mucous membr. moist/pink, Sclerae nonicteric Neck: Supple, 2+ carotid pulse no bruit, JVD not distended, No Thyromegaly, No LAD, Without JVD or thyroid abnormality Respiratory: Clear to auscultation bilaterally, Normal air movement Cardiovascular: No edema, Normal pulses, Regular rate/rhythm, Normal S1 S2, No gallops, No rubs, No murmurs Capillary refill: <2 Seconds Gastrointestinal: Normal bowel sounds, Soft and benign, Non-distended, W/out hepatomegaly, No ascites, No tenderness, No masses, No rebound, No guarding Musculoskeletal: No clubbing, No swelling, No contractures, No erythema, No tenderness, No warmth Integumentary: No rashes, No breakdown, No significant lesion, No tenderness/swelling, No erythema, No warmth, No cyanosis Neurological: Normal gait, Normal speech, Normal strength at 5/5 x4 extr, Normal tone, Sensation intact, Cranial nerves 3-12 intact, Normal reflexes 2+, Normal affect Lymphatics: No axilla or inguinal lymphadenopathy - Studies Laboratory Data (last 24 hrs) 03/11/25 03/11/25 03/11/25 20:16 20:16 20:16 WBC 11.40 H Hgb 14.0 Hct 42.6 Plt Count 460 H PT 12.6 INR 1.12 Sodium 133 L Potassium 3.4 L BUN 41 H Creatinine 2.24 H Glucose 97 Magnesium 2.7 H Total Bilirubin 0.4 AST 31 ALT 38 Alkaline Phosphatase 134 H Male Exam - Male Exam Inguinal exam: No hernias Assessment and Plan - Plan Patient is a 49-year-old male sent to the ER by his PCP due to abnormal renal panel. Patient BUN 41, creatinine 2.24, GFR 35. (1)LA NENA. -IV NS at 100 mL/ hr. -Order follow-up CMP later today. -Held patient metformin at this time since it may be contributing to patient renal failure. On prior admission, patient was not taking metformin because he ran out of it, on discharge patient started taking his metformin. (2)Type 2 diabetes mellitus. -Held patient metformin at this time. -ACHS-moderate sliding scale coverage. (3)Chronic GERD. -Protonix 40 mg p.o. daily. (4)Explained entire treatment plan to the patient and present at the bedside, solicited questions answered and voiced understanding. Also explained the importance of adequate amount of water intake especially since patient works outside during the heat, and voiced understanding.. Discharge Plan: Home Plan to discharge in: 48 Hours - Advance Directives Does patient have a Living Will: No Does patient have a Durable POA for Healthcare: No - Code Status/Comfort Care Code Status Assessed: Yes Code Status: Full Code Critical Care: No Time Spent Managing Pts Care (In Minutes): 55
[2025-03-12] MEDS: POTASSIUM CL SA 10 MEQ TAB PO ONE (03:01)
[2025-03-12] MEDS: NA CHLORIDE 0.9% 1,000 ML IV SCH (03:01)
[2025-03-12 03:18] VITALS: BMI 29.6
[2025-03-12 03:24] VITALS: O2SAT 92
[2025-03-12] MEDS: PANTOPRAZOLE 40MG TABLET PO SCH (06:30)
[2025-03-12] MEDS: INSULIN REGULAR (HUMAN) 100 UNIT/ML SQ SCH (07:30)
[2025-03-12 07:35] LABS: Absolute Lymphocytes (CBC) 1.9 K/uL (0.7-4.9); Hematocrit 41.4 % (39.6-49.0); Hemoglobin 13.6 g/dL (13.6-17.9); MCH 26.4 pg (27.0-35.0); MCHC 32.9 g/dL (32.0-36.0); MCV 80.1 fL (80-100); MPV 7.0 fL (7.6-11.3); Nucleated RBC Absolute Count 0.0 (0-0); Nucleated Red Blood Cells % 0.1 % (0-0); RBC Red Blood Cell Count 5.17 M/uL (4.33-5.43); White Blood Count 9.50 thou/uL (4.3-10.9)
[2025-03-12 07:52] LABS: ALT/SGPT 33.0 U/L (16-61); AST/SGOT 24.0 U/L (15-37); Albumin 3.6 g/dL (3.4-5.0); Albumin/Globulin Ratio 1.2 (1.1-1.8); Alkaline Phosphatase 108.0 U/L (45-117); Anion Gap 7.0 mEq/L (5.0-15.0); BUN Blood Urea Nitrogen 24.0 mg/dL (7-18); Globulin 3.0 g/dL (2.3-3.5); Glucose Level 96.0 mg/dL (74-106); Potassium 4.0 mEq/L (3.5-5.1)
[2025-03-12] MEDS: ASPIRIN EC 81 MG TAB PO SCH (08:03)
[2025-03-12] MEDS: GABAPENTIN 100 MG CAP PO SCH (08:03)
[2025-03-12] MEDS: AMLODIPINE 10 MG TAB PO SCH (08:03)
[2025-03-12] MEDS: HEPARIN 5000 UNIT/ML 1 ML VIAL SQ SCH (08:03)
--- NOTE | 2025-03-12 11:15 | P.PN ---
Date of Service: 03/12/25 (Same Day Progress Note ) Patient is a 78-evgje-slv male who is a predominantly Setswana-speaking only, who reports to ER after he was sent by his PCP for further workup and treatment due to acute renal failure. Patient was examined today with c/o continued intermittent dizziness and reports this has been ongoing since prior to previous admission. - Physical Exam General: Alert, In no apparent distress, Oriented x3 (Predominantly Setswana- speaking.), Cooperative HEENT: Atraumatic, Normocephalic, PERRLA, Mucous membr. moist/pink, Sclerae nonicteric Neck: Supple, 2+ carotid pulse no bruit, JVD not distended, No Thyromegaly, No LAD, Without JVD or thyroid abnormality Respiratory: Clear to auscultation bilaterally, Normal air movement Cardiovascular: No edema, Normal pulses, Regular rate/rhythm, Normal S1 S2, No gallops, No rubs, No murmurs Capillary refill: <2 Seconds Gastrointestinal: Normal bowel sounds, Soft and benign, Non-distended, W/out hepatomegaly, No ascites, No tenderness, No masses, No rebound, No guarding Musculoskeletal: No clubbing, No swelling, No contractures, No erythema, No tenderness, No warmth Integumentary: No rashes, No breakdown, No significant lesion, No tenderness/swelling, No erythema, No warmth, No cyanosis Neurological: Normal gait, Normal speech, Normal strength at 5/5 x4 extr, Normal tone, Sensation intact, Cranial nerves 3-12 intact, Normal reflexes 2+, Normal affect Lymphatics: No axilla or inguinal lymphadenopathy - Plan Patient is a 49-year-old male sent to the ER by his PCP due to abnormal renal panel. Patient BUN 41, creatinine 2.24, GFR 35. Acute Kidney Injury - Most likley due to dehydration - Continue IV NS at 100 mL/ hr - Creat improved from 2.24 > 1.14, continue to monitor - Order follow-up CMP later today - Nephrology consulted; appreciate recs Type 2 diabetes mellitus - Held patient metformin at this time. Patient is reporting "sexual dysfunction" after starting this medication and does not want to take it - Patient reports most recent A1c 5.6%. Reports this lab result within the last week. - ACHS-moderate sliding scale coverage - Carb controlled diet for now Chronic GERD - Protonix 40 mg p.o. daily Syncope - Patient reports multiple episodes of "dizziness" over the last few weeks - Orthostatic vitals ordered - Echo ordered, needs follow up Constipation - Reports taking colace home with no relief, also reports taking his wifes linzess once a week - Miralax daily for now - LBM reported 03/11/2025 DVT Ppx: Heparin GI Ppx: Protonix Code status: Full Code
[2025-03-12] MEDS: POLYETHYL GLY 3350 17 GM/DOSE PO SCH (11:45)
[2025-03-12] MEDS: ACETAMINOPHEN 325 MG TABLET PO PRN (12:54)
--- NOTE | 2025-03-12 18:55 | RAD REPORT ---
EXAMINATION: CAROTID DUPLEX ULTRASOUND CLINICAL INDICATION: left neck pain/swelling TECHNIQUE: Real-time grayscale, color flow and spectral Doppler sonographic images were obtained of t he extracranial carotid system using a linear transducer. COMPARISON: No prior exam. FINDINGS: RIGHT: Common carotid artery: 113 cm/s Internal carotid artery: 111 cm/s External carotid artery: 127 cm/s Right ICA/CCA ratio: 1.0 Plaque: No significant plaquing seen. Vertebral artery Antegrade LEFT: Common carotid artery: 109 cm/s Internal carotid artery: 72 cm/s External carotid artery: 139 cm/s Left ICA/CCA ratio: 0.7 Plaque: Mild soft plaque left common carotid artery. Vertebral artery Antegrade IMPRESSION: No hemodynamically significant stenosis (greater than 50%) within the extracranial internal carotid a rteries. The degrees of stenosis, if any, are quantified according to the consensus statement of the Society o f Radiologists in Ultrasound (SRUS). Please refer to Rui E, Nura C, Fidencio G et al. Carotid Artery Stenosis: Dinh-Scale and Doppler US Diagnosis--Society of Radiologists in Ultrasound Consensus Conference. Radiology. 2003;229(2):340-6.
[2025-03-12] MEDS: ATORVASTATIN 20 MG TAB PO SCH (20:39)
--- NOTE | 2025-03-13 02:46 | CON ---
Date of Consultation: 03/12/2025 Chief Complaint: Acute kidney injury. History Of Present Illness: The patient is a 49-year-old man with history of hypertension, hyperchol esterolemia, and diabetes mellitus and GERD. He was admitted to the hospital March 02 and discha rged on March 05 and was treated for acute kidney. Prior to admission, BUN was 12 and 13, creatinin e 1.01 and 0.93. Apparently, the patient was seen by his PCP. Due to abnormal renal panel, the inga ent was referred to emergency room because the creatinine level was 2.24 . He denies chill s, shortness of breath, nausea, vomiting, abdominal pain discomfort. His diabetic control according to his was good. Hemoglobin A1c was essentially at target range. The patient takes metformin for diabetes mellitus and Norvasc for hypertension. The patient is on atorvastatin for hyp erlipidemia. Past Medical History: Hypertension, hypercholesterolemia, diabetes mellitus type 2. Family History: Mother liver cancer. Social History: Former smoker. Denies alcohol. Review of Systems: Constitutional: Denies fever, chills. Eyes: Denies vision changes. Ears, Nose, Mouth and Throat: Denies sore throat, earache. Respiratory: Denies PND, orthopnea. Cardiovascular: Denies syncope. : Denies dysuria, hematuria. Musculoskeletal: The patient is complaining of left-sided neck pain. Denies any radiation to the ch est area. Physical Examination: General: The patient is awake, alert. Follows commands. Eyes: Anicteric. Sclerae EOMI. Ears, Nose, Mouth, and Throat: Oral mucosa moist. No pallor. Neck: Supple. No bruits. Respiratory: Diminished breath sounds at bases. Heart: S1, S2. Abdomen: Soft, benign. Extremities: No edema. No clubbing. No cyanosis. Laboratory Data: WBC 11.4, hemoglobin 14. PTT 12.6, INR 1.12. Sodium 143, potassium 3.4, BUN 41, c reatinine 2.24, magnesium 2.7 Impression And Plan: 1. Acute kidney injury, likely due to prerenal azotemia. Continue IV fluids. Monitor renal function . Check urinalysis and screen for possible nephritis and check proteinuria. Avoid metformin due to acute kidney injury. . Continue insulin treatment for diabetic control. Monitor glucose level. 2. Hypertension. The patient is on calcium channel florencia. Continue treatment and monitor blood pr essure. 3. Gastroesophageal reflux disease. The patient was taking Protonix. 4. Check urinalysis for any evidence of abnormal urinary sediment and check urine eosinophils if his renal function does not improve to IV fluids. BRANDEE/MODL Voice ID: [id number] Report ID: [id number]
[2025-03-13 07:38] LABS: Absolute Lymphocytes (CBC) 1.5 K/uL (0.7-4.9); Hematocrit 40.0 % (39.6-49.0); Hemoglobin 13.5 g/dL (13.6-17.9); MCH 26.8 pg (27.0-35.0); MCHC 33.8 g/dL (32.0-36.0); MCV 79.4 fL (80-100); MPV 7.4 fL (7.6-11.3); Nucleated RBC Absolute Count 0.0 (0-0); Nucleated Red Blood Cells % 0.0 % (0-0); RBC Red Blood Cell Count 5.05 M/uL (4.33-5.43); White Blood Count 10.10 thou/uL (4.3-10.9)
[2025-03-13 08:01] LABS: ALT/SGPT 29.0 U/L (16-61); AST/SGOT 18.0 U/L (15-37); Albumin 3.4 g/dL (3.4-5.0); Albumin/Globulin Ratio 1.1 (1.1-1.8); Alkaline Phosphatase 116.0 U/L (45-117); Anion Gap 5.7 mEq/L (5.0-15.0); BUN Blood Urea Nitrogen 11.0 mg/dL (7-18); Globulin 3.2 g/dL (2.3-3.5); Glucose Level 97.0 mg/dL (74-106); Potassium 3.7 mEq/L (3.5-5.1)
--- NOTE | 2025-03-13 11:26 | P.DS ---
Admission Date: 03/12/25 Discharge Date: 03/13/25 Disposition: ROUTINE DISCHARGE Discharge Condition: GOOD Reason for Admission: Acute LA NENA. Brief History of Present Illness: Patient is a 49-year-old male sent to the ER by his PCP due to abnormal renal panel. Patient BUN 41, creatinine 2.24, GFR 35. Hospital Course: Acute Kidney Injury - Secondary to dehydration - Completed IV NS inpatient with resolved symptoms - Creat improved from 2.24 > 0.89 prior to discharge - Follow up with PCP - Instructed to stay well hydrated Type 2 diabetes mellitus - Held patient metformin at this time. Patient is reporting "sexual dysfunction" after starting this medication and does not want to take it. Advised patient to discuss concerns with PCP about continuance and possible side effects of this medication - Patient reports most recent A1c 5.6%. Reports this lab result within the last week. - Carb controlled diet Chronic GERD - Protonix 40 mg p.o. daily - Reports taking Omeprazole at home, may continue this med Syncope - Patient reports multiple episodes of "dizziness" over the last few weeks - Orthostatic vitals ordered and negative - Echo completed with normal findings and EF60-65% and carotid dopplar with normal findings Constipation - Reports taking colace home with no relief, also reports taking his wifes linzess once a week - Continue Miralax daily for now - Follow up with PCP Vital Signs/Physical Exam: Temp Pulse Resp BP Pulse Ox 98.3 F 89 16 144/91 H 98 03/13/25 08:00 03/13/25 08:00 03/13/25 08:00 03/13/25 08:00 03/13/25 08:00 HEENT: Atraumatic, Normocephalic, PERRLA, Mucous membr. moist/pink, Other, EOMI, Abnormal EOM, Sclerae nonicteric, Scleral icterus Neck: Supple, JVD not distended Respiratory: Clear to auscultation bilaterally, Normal air movement Cardiovascular: Regular rate/rhythm, Normal S1 S2 Capillary refill: <2 Seconds Gastrointestinal: Normal bowel sounds, No tenderness Musculoskeletal: No tenderness Integumentary: No rashes Neurological: Normal speech, Normal tone, Normal affect External genitalia: No edema Rectal: Deferred Laboratory Data at Discharge: WBC 10.10 thou/uL (4.3-10.9) 03/13/25 06:56 Hgb 13.5 g/dL (13.6-17.9) L 03/13/25 06:56 Hct 40.0 % (39.6-49.0) 03/13/25 06:56 Plt Count 399 thou/uL (152-406) 03/13/25 06:56 PT 12.6 SECONDS (10-13.0) 03/11/25 20:16 INR 1.12 03/11/25 20:16 Sodium 139 mEq/L (136-145) 03/13/25 06:56 Potassium 3.7 mEq/L (3.5-5.1) 03/13/25 06:56 BUN 11 mg/dL (7-18) 03/13/25 06:56 Creatinine 0.89 mg/dL (0.70-1.30) 03/13/25 06:56 Glucose 97 mg/dL (74-106) 03/13/25 06:56 Magnesium 2.0 mg/dL (1.6-2.4) 03/13/25 06:56 Total Bilirubin 0.5 mg/dL (0.2-1.0) 03/13/25 06:56 AST 18 U/L (15-37) 03/13/25 06:56 ALT 29 U/L (16-61) 03/13/25 06:56 Alkaline Phosphatase 116 U/L (45-117) 03/13/25 06:56 Home Medications: Aspirin [Aspirin EC 81 MG] 81 mg PO DAILY #30 tab 03/03/25 Amlodipine [Norvasc*] 10 mg PO DAILY 03/12/25 Atorvastatin Calcium [Lipitor*] 40 mg PO BEDTIME 03/12/25 Gabapentin [Neurontin*] 100 mg PO BID 03/12/25 Metformin HCl [Glucophage*] 500 mg PO DAILY WITH BREAKFAST 03/12/25 Pantoprazole [Protonix Tab*] 40 mg PO DAILYAC tab 03/13/25 Polyethyl Gly 3350 [Glycolax*] 17 gm PO DAILY #30 udbot 03/13/25 New Medications: Polyethyl Gly 3350 [Glycolax*] 17 gm PO DAILY #30 udbot Physician Discharge Instructions: Follow-up with primary care as soon as possible. Continue to monitor blood sugar and blood pressure at home. Take all prescriptions as prescribed. Follow-up with neurology highly recommended. Stay hydrated Diet: ADA Activity: Ad helder Followup: Frederick Cool MD [Primary Care Provider] -
[2025-03-13 12:05] VITALS: BP 144/88; TEMP 98
== END 2025-03-13 12:27 | disposition home or self-care (01) ==
LOC: ER 19:28 → ERHOLD 03-12 01:33 → 4TH 03-12 02:09
PROVIDERS: ADMIT Hospitalist; ATTEND Hospitalist
DX: N17.9 Acute kidney failure, unspecified (principal); E86.0 Dehydration; E11.9 Type 2 diabetes mellitus without complications; K21.9 Gastro-esophageal reflux disease without esophagitis; R55 Syncope and collapse; K59.00 Constipation, unspecified; I10 Essential (primary) hypertension; E78.00 Pure hypercholesterolemia, unspecified; Z79.82 Long term (current) use of aspirin
CPT/HCPCS: 96361; 93005; 93306; 85025 ×3; 80048; 36415 ×2; 83735 ×2; 85610; 82947 ×6; 80076; 81003; 84484; 80053 ×2; 83880; 76377; 74176; 71045; 93880; 96360; 99285; J1644 ×4; J7030 ×5; G0378 ×3